=== PATIENT | male | born 1985 | race Caucasian/White ===

== ENCOUNTER 2018-01-07 10:53 | Emergency (ER) | payer MEDICAID, OTHER ==
[2018-01-07 11:08] VITALS: BMI 51.6
[2018-01-07 11:11] VITALS: BP 144/91; PULSE 71; RESP 20; TEMP 97.5; O2SAT 99
--- NOTE | 2018-01-07 12:14 | C.PDOC ---
History Of Present Illness 32 year old male with PMHx of asthma, "water retention" presents to the ED c/o right sided dental pain for the past 5 days associated with subjective fever and chills. Patient was seen at another ED facility yesterday and prescribed Ultram, PCN and Ibuprofen that he was unable to fill secondary to having no insurance. Patient denies visual changes, nausea, vomit, weakness, numbness, headache, difficulty breathing or swallowing. Time Seen by Provider: 01/07/18 11:31 Chief Complaint (Nursing): Abnormal Skin Integrity History Per: Patient History/Exam Limitations: no limitations Onset/Duration Of Symptoms: Days Current Symptoms Are (Timing): Still Present Location Of Injury: Right: Face Quality Of Symptoms: Painful, Swollen Recent travel outside of the [place]: No Additional History Per: Patient Past Medical History Reviewed: Historical Data, Nursing Documentation, Vital Signs Vital Signs: Last Vital Signs Temp 97.5 F L 01/07/18 11:09 Pulse 71 01/07/18 11:09 Resp 20 01/07/18 11:09 BP 144/91 H 01/07/18 11:09 Pulse Ox 99 01/07/18 12:28 - Medical History PMH: Asthma Other PMH: " water retention" Surgical History: No Surg Hx Family History: States: Unknown Family Hx - Social History Hx Alcohol Use: No Hx Substance Use: No - Immunization History Hx Tetanus Toxoid Vaccination: No Hx Influenza Vaccination: No Hx Pneumococcal Vaccination: No Review Of Systems Constitutional: Positive for: Fever (subjective), Chills (subjective) ENT: Positive for: Mouth Pain, Mouth Swelling Cardiovascular: Negative for: Chest Pain Gastrointestinal: Negative for: Nausea, Vomiting Skin: Negative for: Rash Neurological: Negative for: Weakness, Numbness Physical Exam - Physical Exam Appears: Non-toxic, No Acute Distress Skin: Normal Color, Warm, Dry Head: Atraumatic, Normacephalic, Swelling ((+) mild left sided facial swelling ) Eye(s): bilateral: Normal Inspection, EOMI Nose: Normal, No Discharge Oral Mucosa: Moist Tongue: No Swelling Lips: No Swelling Teeth: No Normal Dentition (poor dentition), Caries Gingiva: Swelling (swelling and tenderness 1 cm area in the left side hard palate along the gingival line), Tender Throat: Normal, No Erythema, No Exudate Neck: Normal ROM, Supple Lymphatic: Normal Exam Chest: Symmetrical Cardiovascular: Rhythm Regular Respiratory: Normal Breath Sounds, No Accessory Muscle Use Extremity: Normal ROM Neurological/Psych: Oriented x3 Gait: Steady ED Course And Treatment O2 Sat by Pulse Oximetry: 99 (On RA) Pulse Ox Interpretation: Normal Progress Note: Plan: - Amoxicillin 250 and 500 mg PO. - Motrin 600 mg PO. - Ultram 50 mg PO. On reassessment, patient is resting comfortably, and is in no acute distress. Pt was instructed strict follow up with dentist today or tomorrow. Instructed to fill rx from previous hospital. Case disccussed and pt evlauated by Dr Waldrop, agreed upon plan and discharge. Disposition - Disposition Disposition: HOME/ ROUTINE Disposition Time: 12:12 Condition: STABLE Additional Instructions: Fill your prescriptions from the other hospital. Follow up with dentist right away. Return to ER if symptoms persist or worsen. Instructions: Tooth Abscess (DC) Forms: [employer] (Guamanian) - Clinical Impression Clinical Impression: Gingival abscess - PA / CORPORATE SAFETY COORDINATOR / Resident Statement MD/DO has reviewed & agrees with the documentation as recorded. - Scribe Statement The provider has reviewed the documentation as recorded by the Scribe Ramirez Lira All medical record entries made by the Scribe were at my direction and personally dictated by me. I have reviewed the chart and agree that the record accurately reflects my personal performance of the history, physical exam, medical decision making, and the department course for this patient. I have also personally directed, reviewed, and agree with the discharge instructions and disposition.
== END 2018-01-07 12:20 | disposition home or self-care (01) ==
LOC: C.ER 10:53
DX: K05.219 Aggressive periodontitis, localized, unspecified severity (principal)

== ENCOUNTER 2018-03-05 14:17 | Emergency (ER) | payer MEDICAID ==
[2018-03-05 14:21] VITALS: BMI 50.7
[2018-03-05 14:24] VITALS: O2SAT 100
[2018-03-05 14:41] LABS: BASO # 0.1 K/uL (0.0-0.2); BASO % 0.6 % (0.0-2.0); EOS # 0.2 K/uL (0.0-0.7); EOS % 2.1 % (0.0-4.0); HEMOGLOBIN 13.7 g/dL (12.0-18.0); LYMPH # 2.7 K/uL (1.0-4.3); MEAN CELL VOLUME 81.2 fL (80.0-94.0); MEAN CORPUSCULAR HEMOGLOBIN 27.3 pg (27.0-31.0); MEAN CORPUSCULAR HGB CONC 33.6 g/dL (33.0-37.0); MEAN PLATELET VOLUME 7.9 fL (7.2-11.7); MONO # 0.8 K/uL (0.0-0.8); NEUT # 5.4 K/uL (1.8-7.0); NEUT % 59.3 % (50.0-75.0); NRBC % 0.1 % (0.0-2.0); RBC 5.03 Mil/uL (4.40-5.90); RED CELL DISTRIBUTION WIDTH 14.5 % (11.5-14.5); WHITE BLOOD COUNT 9.2 K/uL (4.8-10.8)
[2018-03-05 14:49] LABS: ALBUMIN 3.8 g/dL (3.5-5.0); ALT/SGPT 22 U/L (21-72); AST/SGOT 33 U/L (17-59); BLOOD UREA NITROGEN 11 mg/dL (9-20); CALCIUM 8.9 mg/dl (8.6-10.4); GFR AFRICAN-AMERICAN > 60; GFR NON-AFRICAN AMERICAN > 60
[2018-03-05 14:59] LABS: D DIMER < 200 ng/mlDDU (0-243); PARTIAL THROMBOPLASTIN TIME 38 SECONDS (21-34); PROTHROMBIN TIME 11.1 SECONDS (9.7-12.2)
[2018-03-05 15:00] LABS: CK-MB 0.51 ng/mL (0.0-3.38)
[2018-03-05] MEDS ORDERED: Iodixanol 320 MG/ML 100 ML BOTTLE IV ONE (15:36)
[2018-03-05 15:45] LABS: LIPASE 59 U/L (23-300)
--- NOTE | 2018-03-05 15:54 | C.PDOC ---
History Of Present Illness Patient is a 32 y/o male who presents to the ED with complaints of epigastric and RUQ abdominal pain and palpitations since 1 hour prior to arrival. Patient is s/p gastric sleeve surgery performed in August of 2017. Admits to nausea; contrary to triage, patient affirms palpitations but denies chest pain directly. No other physical complaints at this time. Time Seen by Provider: 03/05/18 14:57 Chief Complaint (Nursing): Chest Pain History Per: Patient History/Exam Limitations: no limitations Onset/Duration Of Symptoms: Hrs (1 hour SPOOL FIXER) Current Symptoms Are (Timing): Still Present Recent travel outside of the [place]: No Past Medical History Reviewed: Historical Data, Nursing Documentation, Vital Signs Vital Signs: Last Vital Signs Temp 98.3 F 03/05/18 18:14 Pulse 74 03/05/18 18:14 Resp 18 03/05/18 18:14 BP 124/76 03/05/18 18:14 Pulse Ox 100 03/05/18 18:14 - Medical History PMH: Asthma Surgical History: No Surg Hx Family History: States: No Known Family Hx - Social History Hx Tobacco Use: No Hx Alcohol Use: No Hx Substance Use: No - Immunization History Hx Tetanus Toxoid Vaccination: No Hx Influenza Vaccination: No Hx Pneumococcal Vaccination: No Review Of Systems Cardiovascular: Positive for: Palpitations. Negative for: Chest Pain Gastrointestinal: Positive for: Nausea, Abdominal Pain (RUQ and epigastric) Physical Exam - Physical Exam Appears: Non-toxic, No Acute Distress Skin: Normal Color, Warm, Dry Head: Atraumatic, Normacephalic Oral Mucosa: Moist Chest: Symmetrical Cardiovascular: Rhythm Regular, No Murmur Respiratory: Normal Breath Sounds, No Rales, No Rhonchi, No Wheezing Gastrointestinal/Abdominal: Soft, Tenderness (epigastric and RUQ tenderness), No Guarding, No Rebound Neurological/Psych: Oriented x3, Normal Speech, Normal Cognition ED Course And Treatment - Laboratory Results Result Diagrams: 03/05/18 14:34 03/05/18 14:34 ECG: Interpreted By Me, Viewed By Me ECG Rhythm: Sinus Rhythm ECG Interpretation: Normal Interpretation Of ECG: normal intervals, normal axis; no st/t wave abnormalities Rate From EC (bpm) O2 Sat by Pulse Oximetry: 100 Pulse Ox Interpretation: Normal - CT Scan/US CT abdomen/pelvis Other Rad Studies (CT/US): Interpreted By Me, Read By Radiologist CT/US Interpretation: PROCEDURE: CT Abdomen and Pelvis without intravenous contrast. HISTORY: Abdominal and chest pain, status post gastric bypass surgery. COMPARISON: None. TECHNIQUE: CT scan of the abdomen and pelvis was performed without administration of intravenous contrast. Oral contrast was not administered. Coronal and sagittal reformatted images were obtained. Radiation dose: Total exam DLP = 1436.63 mGy-cm. This CT exam was performed using one or more of the following dose reduction techniques: Automated exposure control, adjustment of the mA and/or kV according to patient size, and/ or use of iterative reconstruction technique. FINDINGS: LOWER THORAX: The visualized lungs are clear. LIVER: Mild hepatomegaly. No gross lesion or ductal dilatation. GALLBLADDER AND BILE DUCTS: No calcified gallstones. PANCREAS: Normal in size. No gross lesion or ductal dilatation. SPLEEN: There is borderline splenomegaly. ADRENALS: No discrete nodules. KIDNEYS AND URETERS: Normal in size without nephrolithiasis. No hydronephrosis. VASCULATURE: No aortic aneurysm. BOWEL: Postsurgical changes of gastric bypass surgery. The small bowel loops are normal in caliber. The colon is decompressed. No bowel dilatation or wall thickening. APPENDIX: No inflammatory changes in the right lower quadrant. PERITONEUM: No free fluid. No free air. LYMPH NODES: No enlarged lymph nodes. BLADDER: Grossly normal in appearance. REPRODUCTIVE: Grossly normal in appearance. BONES: No acute fracture. There is a hemangioma in the T9 vertebral body. Otherwise, within normal limits for the patient's age. OTHER FINDINGS: None. IMPRESSION: No acute abdominal or pelvic abnormality. Status post gastric bypass surgery, no evidence for bowel dilatation or obstruction. Mild hepatosplenomegaly. US gallbladder Other Rad Studies (CT/US): Interpreted By Me, Read By Radiologist CT/US Interpretation: HISTORY: Abdominal pain. COMPARISON: None. TECHNIQUE: Grayscale imaging was performed. FINDINGS: LIVER: Measures 22.6 cm in length. There is diffuse increased echogenicity of the liver parenchyma. No mass. No intrahepatic bile duct dilatation. GALLBLADDER: There are no gallstones, wall thickening or pericholecystic fluid. The sonographic Chowdary's sign is negative. COMMON BILE DUCT: Measures 3.0 mm. No stones. No dilatation. PANCREAS: Unremarkable as visualized. No mass. No ductal dilatation. RIGHT KIDNEY: Measures 12.9 cm in length. Normal echogenicity. No calculus, mass, or hydronephrosis. AORTA: No aneurysmal dilatation. IVC: Unremarkable. OTHER FINDINGS: None . IMPRESSION: Moderate hepatomegaly. Diffuse increased echogenicity in the liver may reflect hepatic steatosis however parenchymal infectious/ inflammatory etiologies cannot be entirely excluded. Clinical and laboratory correlation is advised. . No cholelithiasis or biliary dilatation. Progress Note: CT abdomen/pelvis, EKG, blood work, UA, and US gallbladder ordered. Aspirin administered. On re-eval, patient is feeling better and is tolerating PO. Case discussed with Dr Lainez who agreed with plan to discharge patient home and follow up with PMD. Medical Decision Making Medical Decision Making: Labs and imaging reviewed patient states improvement will discharge home to follow up with pmd/surgeon in 2 days Disposition Counseled Patient/Family Regarding: Studies Performed, Diagnosis, Need For Followup, Rx Given - Disposition Disposition: HOME/ ROUTINE Disposition Time: 18:12 Condition: IMPROVED Additional Instructions: follow up with your doctor and surgeon in 2 days call to make an appointment take medications as needed return to ER if symptoms worsens or progress Prescriptions: Ondansetron ODT [Zofran ODT] 4 mg PO TID PRN #12 odt PRN Reason: Nausea/Vomiting Pantoprazole Sodium [Protonix] 40 mg PO DAILY #12 ect Instructions: Acute Abdomen (Belly Pain), Adult (DC) Forms: General Discharge Instructions, [facility] (Maltese), Work Excuse - Clinical Impression Clinical Impression: Abdominal pain - Scribe Statement The provider has reviewed the documentation as recorded by the Scribmorgan Chavez All medical record entries made by the Scribe were at my direction and personally dictated by me. I have reviewed the chart and agree that the record accurately reflects my personal performance of the history, physical exam, medical decision making, and the department course for this patient. I have also personally directed, reviewed, and agree with the discharge instructions and disposition.
--- NOTE | 2018-03-05 16:30 | US ---
HISTORY: Abdominal pain COMPARISON: None. TECHNIQUE: Grayscale imaging was performed. FINDINGS: LIVER: Measures 22.6 cm in length. There is diffuse increased echogenicity of the liver parenchyma. No mass. No intrahepatic bile duct dilatation. GALLBLADDER: There are no gallstones, wall thickening or pericholecystic fluid. The sonographic Chowdary's sign is negative. COMMON BILE DUCT: Measures 3.0 mm. No stones. No dilatation. PANCREAS: Unremarkable as visualized. No mass. No ductal dilatation. RIGHT KIDNEY: Measures 12.9 cm in length. Normal echogenicity. No calculus, mass, or hydronephrosis. AORTA: No aneurysmal dilatation. IVC: Unremarkable. OTHER FINDINGS: None . IMPRESSION: Moderate hepatomegaly. Diffuse increased echogenicity in the liver may reflect hepatic steatosis however parenchymal infectious/ inflammatory etiologies cannot be entirely excluded. Clinical and laboratory correlation is advised. . No cholelithiasis or biliary dilatation.
--- NOTE | 2018-03-05 16:51 | CT ---
PROCEDURE: CT Abdomen and Pelvis without intravenous contrast HISTORY: Abdominal and chest pain, status post gastric bypass surgery COMPARISON: None. TECHNIQUE: CT scan of the abdomen and pelvis was performed without administration of intravenous contrast. Oral contrast was not administered. Coronal and sagittal reformatted images were obtained. Radiation dose: Total exam DLP = 1436.63 mGy-cm. This CT exam was performed using one or more of the following dose reduction techniques: Automated exposure control, adjustment of the mA and/or kV according to patient size, and/or use of iterative reconstruction technique. FINDINGS: LOWER THORAX: The visualized lungs are clear. LIVER: Mild hepatomegaly. No gross lesion or ductal dilatation. GALLBLADDER AND BILE DUCTS: No calcified gallstones. PANCREAS: Normal in size. No gross lesion or ductal dilatation. SPLEEN: There is borderline splenomegaly. ADRENALS: No discrete nodules. KIDNEYS AND URETERS: Normal in size without nephrolithiasis. No hydronephrosis. VASCULATURE: No aortic aneurysm. BOWEL: Postsurgical changes of gastric bypass surgery. The small bowel loops are normal in caliber. The colon is decompressed. No bowel dilatation or wall thickening. APPENDIX: No inflammatory changes in the right lower quadrant. PERITONEUM: No free fluid. No free air. LYMPH NODES: No enlarged lymph nodes. BLADDER: Grossly normal in appearance. REPRODUCTIVE: Grossly normal in appearance. BONES: No acute fracture. There is a hemangioma in the T9 vertebral body. Otherwise, within normal limits for the patient's age. OTHER FINDINGS: None. IMPRESSION: No acute abdominal or pelvic abnormality. Status post gastric bypass surgery, no evidence for bowel dilatation or obstruction. Mild hepatosplenomegaly.
[2018-03-05] MEDS ORDERED: Morphine 4 MG/ML VIAL IV STA (17:27)
[2018-03-05 18:14] VITALS: BP 124/76; PULSE 74; RESP 18; TEMP 98.3
== END 2018-03-05 18:49 | disposition home or self-care (01) ==
LOC: C.ER 14:17
DX: R10.11 Right upper quadrant pain (principal); R10.13 Epigastric pain
CPT/HCPCS: 74176; 76705; 80053; 83690; 84484; 85025; 85378; 85610; 85730; 96374; 96375; 99285; C9113; J2270; J2765